=== PATIENT | female | born 1960 | race African-American/Black ===

== ENCOUNTER 2016-07-04 12:11 | Day surgery (SDC) | payer OTHER ==
[~2016-07-04] VITALS: Ht 154.9 cm; Wt 54.4 kg
[2016-07-04 13:10] VITALS: Ht 154.9 cm; Wt 54.4 kg
[2016-07-04] MEDS ORDERED: BENAZEPRIL (13:15)
[2016-07-04] MEDS ORDERED: NIFEDIPINE (13:15)
[2016-07-04 13:30] VITALS: BP 138/83; PULSE 48; RESP 24
[2016-07-04] MEDS ORDERED: FENTAnyl 50 MCG/ML VIAL ONE (14:32)
[2016-07-04] MEDS ORDERED: MIDAZOLAM 1 MG/ML 2 ML INJ ONE (14:32)
--- NOTE | 2016-07-04 15:16 | GILP ---
DATE OF PROCEDURE: PROCEDURE: Colonoscopy. PREOPERATIVE DIAGNOSIS: Screening colonoscopy to rule out colon polyps. POSTOPERATIVE DIAGNOSES: Normal colonoscopy. DESCRIPTION OF PROCEDURE: After informed written consent was obtained, the patient was asked to lie on the left lateral side. 2 mg of Versed and 50 mcg of fentanyl was given as intravenous anesthesia . When the patient became somnolent, the Olympus video colonoscope was introduced into the rectum and the scope was advanced all the way to the cecum. The entire colon appeared perfectly normal, with n o mucosal abnormality. The scope at this time was withdrawn from the cecum. No abnormal findings w ere noted. On the way out, retroflexion was performed. Skin tags were noted. On the way out no he morrhoids were noted, and the procedure was terminated. PLAN: Recommend a repeat colonoscopy in 10 years. Dictated By: VIRI PRATER/VERNA Conf#: [id number] DID#: [id number]
== END 2016-07-04 16:00 | disposition home or self-care (01) ==
LOC: GIL 12:11
PROVIDERS: ATTEND Internal Medicine Gastroenterology
DX: Z12.11 Encounter for screening for malignant neoplasm of colon (principal)
CPT/HCPCS: 45378; J2250; J3010; Z7610